=== PATIENT | female | born 2005 | race Caucasian/White ===

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

== ENCOUNTER 2025-01-23 11:43 | Emergency (ER) | payer MEDICAID, SELFPAY ==
--- NOTE | ~2025-01-23 | US_ITS ---
EXAMINATION: US PELVIS TRANSABDOMINAL AND TRANSVAGINAL HISTORY: abd pain, preg (0 hcg today), vag bleed COMPARISON: There are no prior studies available for comparison. TECHNIQUE: Transabdominal and endovaginal real-time 2D livingston-scale ultrasound was performed. FINDINGS: Uterus: The uterus is normal in size, measuring 6.1 x 2.6 x 4.1 cm. Myometrium has a normal echotexture. No fibroids are identified. Endometrium: The endometrial stripe measures 6 mm in thickness. Right ovary: The right ovary measures 2.7 x 1.7 x 2.7 cm. The right ovary is normal in size and echotexture. Left ovary: The left ovary measures 2.4 x 1.6 x 2.4 cm. The left ovary is normal in size. A 4 mm echogenic focus is noted, of uncertain significance. Pelvic fluid: none. US/US pelvic and transvaginal IMPRESSION: 4 mm left ovarian echogenic focus, of uncertain significance. Follow-up is recommended. Otherwise unremarkable pelvic ultrasound. Electronically signed by: Dion Carolina MD 01/23/2025 03:30 PM EDT
[2025-01-23 12:14] VITALS: BP 128/66; PULSE 85; RESP 16; TEMP 36.3; O2SAT 100; BMI 21.5
--- NOTE | 2025-01-23 12:17 | ED_ITS ---
HPI - General Adult General Chief complaint: Vaginal Bleeding Stated complaint: preg+ ? , vaginal bleeding Time Seen by Provider: 01/23/25 13:40 Source: patient Mode of arrival: ambulatory Limitations: no limitations History of Present Illness ED Provider: Luba Andersen PA-C HPI narrative: Patient is a 19 year old assigned female at with a history of early () presenting to the emergency department today with right lower quadrant abdominal pain, right sided low back pain, and vaginal bleeding. Patient states that she is approximately 3 weeks and following with [facility] but has not had a first ultrasound. Patient states that she started having pain and vaginal bleeding today. Patient denies any other complaints at this time. Related Data Previous Rx's ?Medication ?Instructions ?Recorded ondansetron 4 mg disintegrating 4 mg PO Q8H PRN nausea and 12/02/24 tablet vomiting #14 tabs Allergies Allergy/AdvReac Type Severity Reaction Status Date / Time No Known Allergies Allergy Unverified 01/23/25 12:16 Review of Systems 2 Constitutional: Constitutional: Reports as per HPI Eyes: Eyes: Reports as per HPI ENT: Reports as per HPI Cardiovascular: Cardiovascular: Reports as per HPI Respiratory: Respiratory: Reports as per HPI Gastrointestinal: Gastrointestinal: Reports as per HPI Genitourinary: Genitourinary: Reports as per HPI Musculoskeletal: Musculoskeletal: Reports as per HPI Integumentary/Breasts: Skin/Breast: Reports as per HPI Neurologic: Reports as per HPI Psychiatric: Psychiatric: Reports as per HPI Endocrine: Endocrine: Reports as per HPI Hematologic/Lymphatic: Hematologic/Lymphatic: Reports as per HPI Allergic/Immunologic: Allergic/Immunologic: Reports as per HPI [facility] Past Medical History Attestation statement: The following information was validated with the patient. Source: old records reviewed and nursing notes reviewed Social History Social History Advance Directives: No Advance Directives Information Provided: Yes Physical Exam ED Vital Signs: Vital Signs - 24 hr 01/23/25 12:14 01/23/25 15:20 Temperature 97.4 F 97.4 F Pulse Rate 85 85 Respiratory Rate 16 16 Blood Pressure 128/66 128/66 Pulse Oximetry 100 100 Oxygen Delivery Method Room Air Room Air BMI result Body Mass Index 21.5 Const General: cooperative, no acute distress, alert and awake Nutritional Appearance: well nourished Orientation/consciousness: patient oriented x3 HENMT Head: Yes normal to inspection and Yes atraumatic Ears: hearing grossly normal bilaterally and external ears normal General nose exam: Normal external nose present, no nasal discharge noted and no epistaxis Face and sinus: Yes normal facial exam, No abrasion and No laceration Mouth: Normal oral and palatal mucosa present, no drooling and no muffled voice Eyes General: appearance normal, both eyes and all related structures Periorbital: periorbital findings normal Eyelids: Yes eyelids normal Conjunctivae: conjunctivae normal Pupils: Equal, round and reactive pupils present EOM: EOMs intact bilaterally Neck Neck: Yes normal visual inspection and Yes full ROM Resp Effort & Inspection: normal respiratory effort and able to speak in complete sentences Neuro General: patient oriented x3, moves all extremities and CN's II-XI intact bilaterally Cranial nerves: Yes Equal, round and reactive pupils present Cognition (Neuro): normal cognition Extrem General: Yes normal to inspection, Yes full ROM and Yes capillary refill normal Psych Appearance: grossly normal Mental Status: mental status grossly normal Affect: normal affect Attitude: cooperative Thought process: Normal thought process present Thought content: Normal thought content present Insight: Good insight present (Psych) Course Course Course Narrative: RME: 19-year-old female presents to the ED for vaginal bleeding starting today with right lower quadrant abdominal pain. Patient states she was positive 2 weeks ago and is on vitamins. Labs ordered. Medical Decision Making Medical Decision Making MDM Narrative: Patient is a 19 year old assigned female at with a history of early () presenting to the emergency department today with right lower quadrant abdominal pain, right sided low back pain, and vaginal bleeding. Patient's physical exam was as noted in the physical exam portion of this note. Patient alert, oriented, and ambulating without assistance. Patient's blood work was unremarkable, with a beta HCG quant of <2. Patient did not provide a urine sample. Patient declined to have CT/NG + BV panel swabs performed. I explained to the patient that given her hcg <2, her abdominal pain, early term , and vaginal bleeding - I was suspicious the patient was experiencing a miscarriage of the . Patient allowed a transvaginal + abdominal US to be performed. Shortly after returning from the ultrasound, the patient requested to be discharged. I explained to the patient that without the US results, I cannot definitively rule out retained products of conception which may need a surgical intervention. Patient stated that she understood that risk and wants to sign out against medical advice. Patient stated that she would follow up with her OBGYN at [place] [facility]. I explained to the patient that by signing out against medical advice she risks , disability, decreased quality of life, sepsis, heart attack / stroke, among other risks. Patient verbalized understanding of these risks and requested to sign out against medical advice. Patient signed out against medical advice. After patient left the department - her US resulted showing a 4mm left ovarian echogenic focus of uncertain significance. I attempted to call the patient with these results and encourage her to proceed to her nearest emergency department. However, the patient did not answer. Differential Diagnosis Differential Diagnoses: The differential diagnosis associated with the presentation includes Early term Vaginal bleeding PID Ectopic Miscarriage Retained products of conception Admission/Observation Consideration of admission/observation: Escalation of care including admission/observation considered Patient would have been admitted to the hospital had her work up had any findings where hospital admission was appropriate, her clinical presentation warranted hospital admission, and she hadn't signed out against medical advice. Lab Data [facility] Lab Attestation statement: I reviewed the patient's lab results. My interpretation of these results are in the [facility] Rationale portion of this note. 01/23/25 12:32 01/23/25 12:32 Labs: Lab Results 01/23/25 Range/Units 12:32 WBC 8.2 (4.8-10.8) X10*3/uL RBC 4.70 (4.20-5.50) X10*6/uL Hgb 12.6 (12.0-16.0) g/dl Hct 39.0 (37.0-47.0) % MCV 83.0 (80.0-98.0) fL MCH 26.8 L (27.0-33.0) pg MCHC 32.3 (31.0-35.0) g/dl RDW 12.1 (11.0-16.0) % Plt Count 262 D (160-400) X10*3/uL MPV 10.2 (9.4-12.3) fL Immature Gran % (Auto) 0.2 (0.0-0.4) % Neut % (Auto) 70.8 (45-73) % Lymph % (Auto) 19.6 L (20-40) % [place] % (Auto) 6.1 (2-11) % Eos % (Auto) 2.8 (0-4) % Baso % (Auto) 0.5 (0-2) % Lymph # (Auto) 1.6 (1.2-4.9) X10*3/uL [place] # (Auto) 0.5 (0.1-1.2) X10*3/uL Eos # (Auto) 0.2 (0.0-0.4) X10*3/uL Baso # (Auto) 0.0 (0.0-0.2) X10*3/uL Abs Immat Gran (auto) 0.02 (0.00-0.03) X10*3/uL Absolute Neuts (auto) 5.8 (2.0-8.3) x10*3/uL Absolute Nucleated RBC 0.000 (0.0-0.012) X10*3/uL Nucleated RBC % (auto) 0.0 (0.0-0.2) /100WBC Sodium 141 (135-145) mmol/L Potassium 4.0 (3.3-5.1) mmol/L Chloride 107 (96-108) mmol/L Carbon Dioxide 27 (22-29) mmol/L Anion Gap 11 L (12-20) BUN 9 (9-16) mg/dL Creatinine 0.60 (0.5-1.4) mg/dL Estim Creat Clear Calc 108.3 Estimated GFR > 60 Random Glucose 81 (60-115) mg/dL Calcium 9.5 (8.4-10.2) mg/dL Total Bilirubin 0.8 (0.0-1.0) mg/dL AST 24 (5-31) U/L ALT 18 (0-31) U/L Alkaline Phosphatase 91 (39-117) U/L Total Protein 8.2 H (6.5-8.0) g/dL Albumin 5.0 (3.5-5.0) g/dL Beta HCG, Quant < 2 mIU/mL Blood Type B Positive Independent Interpretation I performed an independent interpretation of an: Ultrasound Interpretation: My interpretation is in agreement with the radiologist's impression of this imaging study. L Reason for Exam: abd pain, preg (0 hcg today), vag bleed EXAMINATION: US PELVIS TRANSABDOMINAL AND TRANSVAGINAL HISTORY: abd pain, preg (0 hcg today), vag bleed COMPARISON: There are no prior studies available for comparison. TECHNIQUE: Transabdominal and endovaginal real-time 2D livingston-scale ultrasound was performed. FINDINGS: Uterus: The uterus is normal in size, measuring 6.1 x 2.6 x 4.1 cm. Myometrium has a normal echotexture. No fibroids are identified. Endometrium: The endometrial stripe measures 6 mm in thickness. Right ovary: The right ovary measures 2.7 x 1.7 x 2.7 cm. The right ovary is normal in size and echotexture. Left ovary: The left ovary measures 2.4 x 1.6 x 2.4 cm. The left ovary is normal in size. A 4 mm echogenic focus is noted, of uncertain significance. Pelvic fluid: none. US/US pelvic and transvaginal IMPRESSION: 4 mm left ovarian echogenic focus, of uncertain significance. Follow-up is recommended. Otherwise unremarkable pelvic ultrasound. Electronically signed by: Dion Carolina MD 01/23/2025 03:30 PM EDT Dictated By: Dion Carolina MD Signed By: Electronically signed by Dion Carolina MD 01/23/25 1530 Radiology Impression Discussion of test interpretation with radiology: I have reviewed the radiologist's reading. Discharge Plan Discharge Clinical Impression: Vaginal bleeding, Miscarriage Patient Disposition: Left Against Medical Advice Instructions: Miscarriage (ED) Additional Instructions: You're leaving the department before your ultrasound has been read. You may have retained products of conception that require a surgical intervention. I've explained the risks of , disability, and decreased quality of life, among other things to you. You verbalized understanding and have requested to leave anyway. If your symptoms were to worsen or you change your mind - please call 911 or return to your closest emergency department. Please follow up with your OBGYN. Prescriptions: No Action ondansetron 4 mg tablet,disintegrating 4 mg PO Q8H PRN (Reason: nausea and vomiting) Qty: 14 0RF Stand Alone Forms: Against Medical Advice Interventions: ED Discharge Assessment Last Done: 01/23/25 15:20 Discharge Date/Time: 01/23/25 15:20 Print Language: Upper Sorbian
[2025-01-23 12:36] LABS: MANUAL DIFF FLAG NO
[2025-01-23 12:38] LABS: Hematocrit 39.0 % (37.0-47.0); Hemoglobin 12.6 g/dl (12.0-16.0); Imm Gran Abs Auto 0.02 X10*3/uL (0.00-0.03); Imm Gran Pct Auto 0.2 % (0.0-0.4); Lymphocytes Absolute Auto 1.6 X10*3/uL (1.2-4.9); Mean Corpuscular HGB Conc 32.3 g/dl (31.0-35.0); Mean Corpuscular Hemoglobin 26.8 pg (27.0-33.0); Mean Corpuscular Volume 83.0 fL (80.0-98.0); NRBC Abs Auto 0.000 X10*3/uL (0.0-0.012); NRBC Pct Auto 0.0 /100WBC (0.0-0.2); Platelet Count 262 X10*3/uL (160-400); Red Blood Count 4.70 X10*6/uL (4.20-5.50); White Blood Count 8.2 X10*3/uL (4.8-10.8)
[2025-01-23 12:57] LABS: Alanine Aminotransferase 18 U/L (0-31); Albumin Level 5.0 g/dL (3.5-5.0); Alkaline Phosphatase 91 U/L (39-117); Anion Gap 11 (12-20); Aspartate Amino Transferase 24 U/L (5-31); Blood Urea Nitrogen 9 mg/dL (9-16); Calcium 9.5 mg/dL (8.4-10.2); Carbon Dioxide 27 mmol/L (22-29); Chloride 107 mmol/L (96-108); Creatinine Clr Calc Pharmacy 108.3; Estimated Glomerular Filt Rate > 60; Potassium 4.0 mmol/L (3.3-5.1); Sodium 141 mmol/L (135-145); Total Protein 8.2 g/dL (6.5-8.0)
--- NOTE | 2025-01-23 15:03 | PC.NURSE ---
Patient is refusing swab collections at this time. KENDALL Andersen aware. Ultrasound completed, but awaiting results.
[2025-01-23 15:20] VITALS: BP 128/66; PULSE 85; RESP 16; TEMP 36.3; O2SAT 100
--- OUTSIDE RECORDS SUMMARY | 2025-01-23 16:39 | XMS_ITS | Clinical Summary ---
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
== END 2025-01-23 15:20 | disposition left against medical advice (07) ==
PROVIDERS: Physician Assistant; Emergency Provider Emergency Medicine
DX: R10.31 Right lower quadrant pain (principal); M54.50 Low back pain, unspecified; N93.9 Abnormal uterine and vaginal bleeding, unspecified; Z53.29 Procedure and treatment not carried out because of patient's decision for other reasons
CPT/HCPCS: 36415; 76830; 76856; 80053; 84702; 85025; 86900; 86901; 99282; 99284

== ENCOUNTER → 2025-01-23 13:40 | Outpatient (BNV) | payer MEDICAID, SELFPAY | PROVIDERS: Emergency Provider Emergency Medicine; Visit Provider Radiology Diagnostic Radiology | DX: N93.9 Abnormal uterine and vaginal bleeding, unspecified (principal); R10.31 Right lower quadrant pain | CPT/HCPCS: 76830; 76856 ==